=== PATIENT | male | born 2000 | race African-American/Black ===

== ENCOUNTER 2022-12-09 23:10 | Emergency (ER) | payer BC ==
[~2022-12-09] VITALS: Ht 185.4 cm; Wt 75.1 kg
[2022-12-09 23:30] VITALS: BP 127/81
[2022-12-10] MEDS ORDERED: IBUPROFEN 600MG TABLET PO ONE (00:15)
[2022-12-10] MEDS ORDERED: FLUORESCEIN SODIUM 1MG/STRIP LEFTEYE ONE (00:15)
[2022-12-10] MEDS ORDERED: TETRACAINE 0.5% OPHTH DROPS 4ML LEFTEYE ONE (00:15)
== END 2022-12-10 01:17 | disposition home or self-care (01) ==
LOC: ER 23:10
DX: S05.12XA Contusion of eyeball and orbital tissues, left eye, initial encounter (principal); Y04.0XXA Assault by unarmed brawl or fight, initial encounter; Y93.89 Activity, other specified; Y92.89 Other specified places as the place of occurrence of the external cause; Y99.8 Other external cause status
CPT/HCPCS: 99284